=== PATIENT | male | born 1965 | race African-American/Black ===

== ENCOUNTER 2017-03-16 02:30 | Inpatient (IN) | payer OTHER ==
[~2017-03-16] VITALS: Ht 182.9 cm; Wt 101.2 kg
--- NOTE | ~2017-03-16 | EKG ---
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: MADISYN : 1965 Requested By: Kp Morton Order Number: [id number] MD: Shaun Neri Measurements Intervals [place] Rate: 106 P: 46 MN: 162 QRS: 73 QRSD: 166 T: -23 QT: 376 QTc: 500 Interpretive Statements Sinus tachycardia Right bundle branch block Borderline ST depression, lateral leads Compared to ECG 05/23/2015 19:06:36 No significant changes Electronically Signed On 03-16-2017 8:16:21 CHARGE ENTRY by Shaun Neri [email or web address] <ELECTRONICALLY SIGNED> By: Shaun Neri MD, [facility] 03/16/17 0816 Shaun Neri MD, [facility] /EPI
--- NOTE | ~2017-03-16 | 2DMMODE ---
[facility] [address] [place] [address] 2 D/M-MODE ECHOCARDIOGRAM Name: GIL KYLE Room #: 207-P ADM IN M.R.#: [id number] Admission: 03/16/17 Attend Phys: Moises Souza MD Discharge: Date of : 61 Date of Service: 03/16/17 1225 Report #: [id number] THIS REPORT FOR: //name// APPROVED REPORT Study performed: 03/16/2017 09:23:20 EXAM: Comprehensive 2D, Doppler, and color-flow Echocardiogram Patient Location: Echo lab Room #: [facility] Status: routine BSA: 2.23 HR: 85 bpm BP: 136/91 mmHg Other Information Study Quality: Good Indications CAD Hypertension/HDD AICD fire, hypertensive cardiomyopathy 2D Dimensions RVDd: 43.21 mm LVEF(%): 43.50 (>50%) IVSd: 19.22 (7-11mm) LVOT Diam: 22.93 (18-24mm) LVDd: 50.86 mm PWd: 18.29 (7-11mm) Ascending Ao: 32.26 (22-36mm) LVDs: 39.88 (25-40mm) Aortic Root: 33.18 mm IVC: 11.00 mm Farias's LVEF: 43.50 % Volumes Left Atrial Volume (Systole) Single Plane 4CH: 106.83 mL Single Plane 2CH: 83.30 mL LA ESV Index: 47.00 mL/m2 Aortic Valve AoV Peak Perry.: 1.25 m/s AO Peak Gr.: 7.16 mmHg LVOT Max P.90 mmHg LVOT Max V: 1.11 m/s ESMER Vmax: 3.65 cm2 Mitral Valve E/A Ratio: 1.2 [facility] [place] [address] 2 D/M-MODE ECHOCARDIOGRAM Name: GIL KYLE Room #: 207-P [facility] IN M.R.#: [id number] Admission: 03/16/17 Attend Phys: Moises Souza MD Discharge: Date of : 61 Date of Service: 03/16/17 1225 Report #: [id number] MV Decel. Time: 171.91 ms MV E Max Perry.: 0.84 m/s MV A Perry.: 0.72 m/s MV PHT: 49.85 ms IVRT: 78.43 ms Pulmonary Valve PV Peak Perry.: 0.88 m/s PV Peak Gr.: 3.09 mmHg Pulmonary Vein P Vein S: 0.38 m/s P Vein A: 0.16 m/s P Vein D: 0.53 m/s P Vein A Dur.: 96.9 msec P Vein S/D Ratio: 0.72 Tricuspid Valve TR Peak Perry.: 2.78 m/s RAP Estimate: 5.00 mmHg TR Peak Gr.: 30.82 mmHg PA Pressure: 36.00 mmHg Left Ventricle The left ventricle is normal size. There is normal LV segmental wall motion. Severe concentric left ventricular hypertrophy. The left ventricular systolic function is normal. The left ventricular ejection fraction is within the normal range. LVEF is 55-60%. Moderate diastolic dysfunction is present (pseudonormal filling). Right Ventricle Right ventricle is mildly dilated. The right ventricular systolic function is normal. Atria Left atrium is dilated. Right atrium is mildly dilated. Aortic Valve The aortic valve is mildly sclerotic No aortic regurgitation is present. There is no aortic valvular stenosis. Mitral Valve The mitral valve is normal in structure. Moderate mitral regurgitation. No evidence of mitral valve stenosis. Tricuspid Valve The tricuspid valve is normal in structure. Mild to moderate tricuspid regurgitation. PAP is estimated at [address] [place] [address] 2 D/M-MODE ECHOCARDIOGRAM Name: GIL KYLE Room #: 207-P [facility] IN [facility]#: [id number] Admission: 03/16/17 Attend Phys: Moises Souza MD Discharge: Date of : 61 Date of Service: 03/16/17 1225 Report #: [id number] Pulmonic Valve The pulmonary valve is normal in structure. There is no pulmonic valvular regurgitation. Great Vessels The aortic root is normal in size. IVC is normal in size and collapses >50% with inspiration. Pericardium There is no pericardial effusion. <Conclusion> The left ventricular systolic function is normal. The left ventricular ejection fraction is within the normal range. Severe concentric left ventricular hypertrophy. LVEF 55-60%. Moderate diastolic dysfunction is present (pseudonormal filling). The aortic valve is mildly sclerotic. No aortic valvular stenosis or insufficiency. The mitral valve is normal in structure. Moderate mitral regurgitation. Mild to moderate tricuspid regurgitation. Pulmonary artery pressure is estimated at 36 mmHg. There is no pericardial effusion. <ELECTRONICALLY SIGNED> By: Shaun Neri MD, [facility]ACC 03/16/17 1225 122 24 Shaun Neri MD, FACC /INF
--- NOTE | ~2017-03-16 | EKG ---
[address] [place] [address] ELECTROCARDIOGRAM REPORT Name: GIL KYLE Room #: 207-P ADM IN M.R.#: [id number] Admission: 03/16/17 Attend Phys: Moises Souza MD Discharge: Date of : 61 Report #: [id number] THIS REPORT FOR: //name// [facility] ED Test Date: 2017-03-16 Test Time: 03:47:16 Pat Name: GIL KYLE Department: Room: 207 Gender: M Eligibility Manager: Sravanthi TAMAYO : 1965 Requested By: Kp Morton Order Number: [id number] MD: Shaun Neri Measurements Intervals [place] Rate: 95 P: 24 WI: 199 QRS: 74 QRSD: 160 T: 27 QT: 410 QTc: 516 Interpretive Statements Sinus rhythm Borderline prolonged WI interval Right bundle branch block Compared to ECG 05/23/2015 19:06:36 Sinus tachycardia no longer present Electronically Signed On 03-16-2017 8:17:41 FUNCTIONAL TESTER by Shaun Neri [email or web address] <ELECTRONICALLY SIGNED> By: Shaun Neri MD, [facility] 03/16/17816 6 Shaun Neri MD, [facility] /EPI
[~2017-03-16 02:30] MED LIST: ALLOPURINOL 30300 M1 PO; AMLODIPINE BESY10 MG PO; FLEXERIL PO; INDOMETHACIN 2525 MG PO; INDOMETHACIN SR75 M1 PO; LOPRESSOR25 PO; NORCO 5-325 TA1 EACH PO; VERAPAMIL E.R240 M1 PO; XANAX1 MG PO
[2017-03-16 02:31] VITALS: BP 177/101
[2017-03-16 02:52] LABS: HEMATOCRIT 43.2 % (42.0-52.0); HEMOGLOBIN 14.4 gm/dL (14.0-18.0); MCH 30.8 pg (26.0-34.0); MCHC 33.4 g/dL (28.0-37.0); MCV 92.2 fL (80.0-100.0); RBC 4.68 mil/uL (4.50-6.00); RDW 13.6 % (10.5-14.5); WBC 13.7 thou/uL (4.0-11.0)
[2017-03-16] MEDS ORDERED: COLCHICINE0.6 M1 PO (02:58)
[2017-03-16 03:04] LABS: POTASSIUM 2.9 mmol/L (3.5-5.1)
[2017-03-16 03:20] LABS: CALCIUM 8.7 mg/dL (8.5-10.1); CREATININE 1.7 mg/dL (0.7-1.3)
[2017-03-16 03:36] LABS: MAGNESIUM 1.7 mg/dL (1.8-2.4); TOTAL BILIRUBIN 0.2 mg/dL (<0.1-1.0); TOTAL PROTEIN 7.4 g/dL (6.4-8.2)
[2017-03-16 03:37] LABS: ALBUMIN 4.1 g/dL (3.4-5.0); TROPONIN-I 0.43 ng/mL (<0.06)
[2017-03-16 04:07] VITALS: BP 128/80
[2017-03-16 04:40] VITALS: BP 136/91
[2017-03-16 05:02] LABS: CHOLESTEROL 215 mg/dL (<200); HDL CHOLESTEROL 50 mg/dL (>40); LDL CHOLESTEROL 125 mg/dL (<100); TC:HDL 4.3 Ratio (Not establshd); TRIGLYCERIDE 204 mg/dL (<150); VLDL 41 mg/dL (<40)
[2017-03-16 05:05] LABS: SERUM ASSESSMENT Clear
[2017-03-16] MEDS ORDERED: LYRICA 50 MG50 MG PO (06:08)
[2017-03-16] MEDS ORDERED: WELLBUTRIN SR150 MG PO (06:08)
[2017-03-16] MEDS ORDERED: HYDROCHLOROTH12.5 M1 PO (06:08)
[2017-03-16] MEDS ORDERED: AMBIEN 5 MG TABL5 M1 PO (06:09)
[2017-03-16] MEDS ORDERED: HYDROCHLOROTH12.5 M2 PO (13:55)
[2017-03-16] MEDS ORDERED: GABAPENTIN 100100 MG PO (14:00)
[2017-03-16] MEDS ORDERED: ROPINIROLE HCL0.5 MG PO (14:11)
[2017-03-16 14:15] LABS: CALCIUM 8.7 mg/dL (8.5-10.1); CREATININE 1.4 mg/dL (0.7-1.3); MAGNESIUM 1.9 mg/dL (1.8-2.4); POTASSIUM 4.3 mmol/L (3.5-5.1)
[2017-03-16 14:16] VITALS: BP 136/90
[2017-03-16 15:37] VITALS: BP 127/82
[2017-03-17 05:07] LABS: GLYCOHEMOGLOBIN (HGB A1C) 5.3 % (4.8-5.6)
== END 2017-03-16 16:43 | disposition short-term general hospital (02) | DRG 314 ==
LOC: ER 02:30 → 2N 03:34 → EROBS 03:34 → 2N 04:08
PROVIDERS: Emergency Medicine; Nurse Practitioner Acute Care
DX: T82.118A Breakdown (mechanical) of other cardiac electronic device, initial encounter (principal); N17.0 Acute kidney failure with tubular necrosis; I42.2 Other hypertrophic cardiomyopathy; M10.9 Gout, unspecified; E87.6 Hypokalemia; F32.9 Major depressive disorder, single episode, unspecified; F41.9 Anxiety disorder, unspecified; G47.33 Obstructive sleep apnea (adult) (pediatric); N18.3 Chronic kidney disease, stage 3 (moderate); I12.9 Hypertensive chronic kidney disease with stage 1 through stage 4 chronic kidney disease, or unspecified chronic kidney disease; I25.10 Atherosclerotic heart disease of native coronary artery without angina pectoris; Y83.8 Other surgical procedures as the cause of abnormal reaction of the patient, or of later complication, without mention of misadventure at the time of the procedure; Z95.0 Presence of cardiac pacemaker; Z82.49 Family history of ischemic heart disease and other diseases of the circulatory system; Z95.5 Presence of coronary angioplasty implant and graft; Y92.89 Other specified places as the place of occurrence of the external cause
CPT/HCPCS: 10081